=== PATIENT | female | born 1935 | race Caucasian/White ===

== ENCOUNTER 2017-12-28 06:20 | Day surgery (SDC) | payer OTHER ==
[~2017-12-28] VITALS: Ht 160 cm; Wt 75.1 kg
[~2017-12-28 06:20] MED LIST: ADULT ASPIRIN81 MG; Cranberry300 MG; VERA120; VITAMIN B COMP1 EACH
== END 2017-12-28 08:01 | disposition home or self-care (01) ==
LOC: ORSCSDS 06:20
PROVIDERS: Ophthalmology
PROC: 08RJ3JZ Replacement of Right Lens with Synthetic Substitute, Percutaneous Approach (ICD-10-PCS; principal; 2017-12-28 07:30)
DX: H25.11 Age-related nuclear cataract, right eye (principal); H21.81 Floppy iris syndrome; I10 Essential (primary) hypertension; Z86.73 Personal history of transient ischemic attack (TIA), and cerebral infarction without residual deficits; Z79.899 Other long term (current) drug therapy
CPT/HCPCS: J2250; J3010; J3301; V2632

== ENCOUNTER 2018-01-18 08:08 | Day surgery (SDC) | payer OTHER ==
[~2018-01-18] VITALS: Ht 160 cm; Wt 74.5 kg
== END 2018-01-18 10:32 | disposition home or self-care (01) ==
LOC: ORSCSDS 08:08
PROVIDERS: Ophthalmology
PROC: 08RK3JZ Replacement of Left Lens with Synthetic Substitute, Percutaneous Approach (ICD-10-PCS; principal; 2018-01-18 09:30)
DX: H25.12 Age-related nuclear cataract, left eye (principal); I10 Essential (primary) hypertension; Z79.899 Other long term (current) drug therapy
CPT/HCPCS: J2250; J3010; J3301; J7040; V2632

== ENCOUNTER → 2020-01-08 | Outpatient (CLI) | payer MEDICARE ==
[~2020-01-08] MED LIST changes: -ADULT ASPIRIN81 MG; +ASPIR 8181 MG PO; +B Complex-Foli1 EACH PO; -VERA120; +VERA120 PO; -VITAMIN B COMP1 EACH; +Zithromax250 MG PO
== END | disposition home or self-care (01) ==
LOC: PLD 12:24 → LAB SHORT 12:24
DX: L57.0 Actinic keratosis (principal)
CPT/HCPCS: 88305

== ENCOUNTER → 2020-12-23 | Outpatient (CLI) | payer MEDICARE | END | disposition home or self-care (01) | LOC: LAB SHORT 15:59 | DX: L57.0 Actinic keratosis (principal); L81.4 Other melanin hyperpigmentation; L81.9 Disorder of pigmentation, unspecified | CPT/HCPCS: 88305 ==

== ENCOUNTER → 2021-01-12 | Outpatient (CLI) | payer MEDICARE | END | disposition home or self-care (01) | LOC: LAB SHORT 09:00 → LAB 09:00 | DX: L72.0 Epidermal cyst (principal); C44.311 Basal cell carcinoma of skin of nose | CPT/HCPCS: 88305 ==

== ENCOUNTER 2022-01-07 13:43 | Inpatient (IN) | payer MEDICARE ==
[~2022-01-07] VITALS: Ht 170.2 cm; Wt 76.9 kg
[~2022-01-07 13:43] MED LIST changes: +CEFD300 PO
[2022-01-07 14:23] LABS: BASOPHILS ABSOLUTE AUTO 0.05 K/mm3 (0.00-0.23); BASOPHILS PERCENT AUTO 1 % (0-2); EOSINOPHILS ABSOLUTE AUTO 0.04 K/mm3 (0.00-0.68); EOSINOPHILS PERCENT AUTO 1 % (0-6); Hematocrit 40.4 % (33.0-51.0); Hemoglobin 13.9 g/dL (11.5-16.0); IMMATURE GRAN ABSOLUTE AUTO 0.02 K/mm3 (0.00-0.10); IMMATURE GRAN PERCENT AUTO 0 % (0-1); LYMPHOCYTES ABSOLUTE AUTO 1.53 K/mm3 (0.84-5.20); LYMPHOCYTES PERCENT AUTO 24 % (21-46); MONOCYTES ABSOLUTE AUTO 1.16 K/mm3 (0.16-1.47); MONOCYTES PERCENT AUTO 18 % (4-13); Mean Corpuscular HGB 31.7 pg (26.0-34.0); Mean Corpuscular HGB Conc 34.4 g/dL (31.5-36.5); Mean Corpuscular Volume 92 fL (80-100); Mean Platelet Volume 10.7 fL (9.1-12.4); NEUTROPHILS ABSOLUTE AUTO 3.67 K/mm3 (1.96-9.15); NEUTROPHILS PERCENT AUTO 57 % (41-73); Platelet Count 207 K/mm3 (150-400); RDW Coefficient Variation 13.2 % (11.7-14.2); RDW Standard Deviation 45.4 fL (35.1-46.3); Red Blood Cell Count 4.39 M/mm3 (3.80-5.20); White Blood Cell Count 6.47 K/mm3 (4.00-11.30)
[2022-01-07 14:23] LABS: Source, Urine Straight Cath
[2022-01-07 14:36] LABS: Alanine Aminotransfer (ALT/SGP 34 U/L (12-78); Albumin, Blood 2.7 g/dL (3.4-5.0); Albumin/Globulin Ratio 0.7 (0.8-1.8); Alk Phos 45 U/L (50-136); Anion Gap 6 mmol/L (6-16); Aspartate Aminotrans (AST/SGOT 32 U/L (12-37); Bilirubin, Total 0.4 mg/dL (0.1-1.0); Blood Urea Nitrogen 10 mg/dL (8-24); Bun/Creatinine Ratio 13.7 (12.0-20.0); CO2, Blood 27 mmol/L (21-32); Calcium, Blood 8.8 mg/dL (8.5-10.1); Chloride, Blood 103 mmol/L (98-108); Creatinine, Blood 0.73 mg/dL (0.40-1.00); Ethanol (Alcohol), Blood, Med <3 mg/dL; Globulin, Blood 3.9 g/dL (2.2-4.0); Glomerular Filtration Rate 80 (60-); Glucose, Blood 118 mg/dL (70-99); Potassium, Blood 3.2 mmol/L (3.5-5.5); Sodium, Blood 136 mmol/L (136-145); Total Protein, Blood 6.6 g/dL (6.4-8.2)
[2022-01-07 14:42] LABS: Appearance, Urine Hazy (Clear); Bilirubin, Urine Neg (Neg); Blood, Urine Neg (Neg); Color, Urine Yellow (P-Yellow); Glucose Qualitative, Urine Neg (Neg); Ketones, Urine Neg (Neg); Leukocyte Esterase, Urine Neg (Neg); Nitrite, Urine Neg (Neg); Protein, Urine Neg (Neg); Urobilinogen, Urine NORM (Normal)
[2022-01-07 14:57] LABS: Red Blood Cells, Urine 0-2 /hpf (0-2); Squamous Epithelial Cells Few /hpf (Few); White Blood Cells, Urine 0-2 /hpf (0-5)
[2022-01-07 14:58] LABS: Bacteria Few /hpf; Yeast/Fungi Urine Many /hpf
[2022-01-07 15:30] LABS: Free Thyroxine 1.09 ng/dL (0.70-1.60)
[2022-01-07 15:32] LABS: Thyroid Stimulating Hormone 1.66 uIU/mL (0.360-4.800); Triiodothyronine, Free 1.76 pg/mL (2.18-3.98)
--- NOTE | 2022-01-08 05:36 | NUR ---
PT ADMIT TO ROOM 329 FROM ER THIS SHIFT, ALERT, [place], WEAK BUT WEAKER ON RIGHT SIDE. SLOW TO ANSWER, NPO AT THIS TIME FOR ST EVAL. INCONTINENT OF URINE, PURWICK IN PLACE AT THIS TIME. PT IS ON BEDREST.
[2022-01-08 05:40] LABS: Bun/Creatinine Ratio 15.9 (12.0-20.0); Calcium, Blood 9.2 mg/dL (8.5-10.1); Creatinine, Blood 0.76 mg/dL (0.40-1.00); Potassium, Blood 4.2 mmol/L (3.5-5.5)
--- NOTE | 2022-01-08 18:48 | NUR ---
SHIFT SUMMARY PT A&O X 3. VSS. PT PASSED SWALLOW TEST. PT & OT WORKED WITH PT TODAY. SEE THEIR NOTES. FAMILY AT BEDSIDE. MANAGER HAIR IN TO SPEAK WITH PT & FAMILY. PT REQUIRES ASSIST TO EAT. R SIDED WEAKNESS NOTED. PT HAD MOD SIZED INC STOOL TODAY. PLAN IS POSSIBLE DC TO SNF NEXT WEEK.
--- NOTE | 2022-01-09 05:36 | NUR ---
PT IS ALERT, GENERAL WEAKNESS BUT WEAKER TO RIGHT SIDE, INCONTINENT OF BLADDER AND BOWEL. REDNESS TO GLUTEAL CRACK DUE TO BOWEL INCONTINENCE, CALAZIME CREAM APPLIED. TELE MONITOR. 2L O2 VIA N/C.
[2022-01-09] MEDS ORDERED: Inderal40 MG PO (06:30)
--- NOTE | 2022-01-09 10:21 | NUR ---
Subjective: Patient in bed on entry, weepy and emotional, reluctant to work with therapy, denies pain. Objective: Patient performed therapeutic exercises in supine and seated positions including: Ankle pumps,Heel slides, quad sets, SLR's, glute sets, LAQ's, and hip flexion needing no assistance on L LE, ModA needed with all LE exercises due to weakness, Patient able to perform shoulder shrugs, minimal R UE mobility due to weakness needing modA with OH press, R hand inspector balance truing strength 2-/10. Patient performed UE weight shifting for recruitment into R UE along with cues being needed on upright posture as patient wanted to lean to the right side. Assessment: Patient demonstrated improved tolerance with bed mobility and transfers needing min/mod assistance with moving from supine to sitting EOB, Moderate cues needed on motor planning and control, mod/max assistance needed with R LE. ModA x1 needed with STS at FWW, maximal cues and assistance needed with R UE/LE into standing and pushing through L UE/LE with focus on upright posture. Patient performed 2 STS before needing to sit due to increased fatigue. MaxA needed with B LE's back up into bed. Plan: Patient will benefit from continued skilled therapy in a SNF upon discharge for improved strength to maintain function.
--- NOTE | 2022-01-09 11:16 | NUR ---
MS SENA IS ORIENTATED TO SELF, [facility], JANUARY 2022. CONFUSED AND RAMPART, SLURRED ELGIN. SYMPTOMS IMPROVING PER HER GRANDDAUGHTER WHO IS HERE WITH HER. R HAND AND ARM WEAKNESS, R LEG WEAKNESS. ABLE TO DEALER ACCOUNT MANAGER WITH R HAND VERY WEAKLY, ABLE TO MOVE R FOOT UP AND DOWN BUT NOT LIFT R LEG OFF THE BED. ABLE TO DO SHOULDER SHRUGS. WORKED WITH PT AND SPEACH THERAPIST THIS AM, PT REMINDED TO DO PRESCRIBED EXERCISES. C/O JAW PAIN WHEN SHE CHEWS, CHANGED TO SOFT DIET BY SPEACH THERAPIST. C/O SORENESS WITH REDNESS AROUND BUTTOCKS. ENCOURAGED AND ASSISTED TO TURN AND REPOSITION. STRONG PRODUCTIVE COUGH, ON 2L NC. GRANDDAUGHTER SAID PT IS NOT ON O2 AT HOME. NO SOB OBSERVED. BED LOW, CALL LIGHT IN REACH, BED ALARM ON.
--- NOTE | 2022-01-09 15:18 | NUR ---
POOR PO INTAKE, APPROX 300CC TODAY. NOT VOIDED. BLADDER SCAN [id number]. MESSAGE LEFT WITH DR CLEARY. PO FLUIDS ENCOURAGED
--- NOTE | 2022-01-09 19:07 | NUR ---
SHIFT SUMMARY MS SENA IS ALERT, ABLE TO ANSWER ORIENTATION QUESITIONS FOR NAME, THAT SHE'S AT [facility] AND MONTH AND YEAR, BUT SHE IS CONFUSED AND FORGETFUL. HER FAMILY WAS VISITING TODAY, HER GRANDDAUGHTER SAID THAT SHE NOTICES IMPROVEMENT IN SPEACH, STRENGTH AND MENTATION. PT WORKED WITH SPEACH THERAPY AND PT TODAY. SHE HAS A POOR APPETITE AND DRINKS SMALL VOLUMES AT A TIME. SHE HAD NOT VOIDED BY AROUND 3PM. BLADDER SCAN DONE AT 326CC. DR CLEARY WAS NOTIFIED, IVF STARTED LR AT 125CC/HR. PT HAD EPISODE OF URINARY INCONTINENCE AFTER THIS, UNABLE TO MEASURE VOLUME. RIGHT HAND/ARM WEAKNESS AND R LEG WEAKNESS, SLURRED SPEACH AND R FACIAL DROOP PER PRIOR NOTE. BED LOW, CALL LIGHT IN REACH. BED ALARM ON.
--- NOTE | 2022-01-10 16:04 | NUR ---
BLADDER SCAN COMPLETED, 726ML RESIDUAL. NOTIFIED, ORDER TO PLACE SINGER RECEIVED. SINGER PLACED, DRAINING TO GRAVITY, WILL CONTINUE TO MONITOR
--- NOTE | 2022-01-10 17:56 | NUR ---
SHIFT SUMMARY PT ALERT AND ORIENTED, OCCASIONAL CONFUSION NOTED, BUT ABLE TO FOLLOW COMMANDS. RIGHT SIDED WEAKNESS, SLURRED SPEACH AND SMALL DELAY. PENDING ECHO AND CAROTID. SINGER PLACED TODAY D/T RETENTION, DRAINING TO GRAVITY. WILL CONTINUE TO MONITOR.
--- NOTE | 2022-01-11 04:10 | NUR ---
SHIFT SUMMARY: PT A/OX3, OCCASSIONAL INCREASED CONFUSION WHEN WAKING. REORIENTATION PROVIDED. IMPROVED STRENGTH NOTED IN RIGHT ARM, INCREASED RANGE OF MOTION, STRENGHTH AND MOVEMENT. NO COMPLAINTS OF PAIN. SINGER CATHETER REMAINS IN PLACE AND DRAINING WELL. PT CONTINES TO REQUEST LYING SUPINE, DECLINES SLEEPING OR TURNING ON SIDE DUE TO COMFORT. BED ALARM REMAINS ACTIVATED, CALL ZHENG AND BELONGINGS IN REACH, BED IN LOW POSITION.
--- NOTE | 2022-01-11 17:00 | NUR ---
SHIFT SUMMARY PT ALERT AND ORIENTED. TEMPORARY CONFUSION WHEN WAKING UP. SINGER IN PLACE, DRAINING TO GRAVITY. PT AGREES TO GO TO REHAB FACILITY TEMPORARILY WHILE WAITING FOR HH TO BE SET UP. REGAINING STRENGTH TO R EXTREMITIES. NO C/O PAIN. WILL CONTINUE TO MONITOR
--- NOTE | 2022-01-12 05:56 | NUR ---
SHIFT SUMMARY: PATIENT HAD A RESTLESS NIGHT. OFF AND ON SLEEP, APPEARS TO BE FIXATED ON GOING HOME AND CONCERNED WITH DISCHARGING TO POSSIBLE SNIFF. CONTINUED OCCASSIONAL CONFUSION WHEN WAKING AND SOME SHORT TERM MEMORY LOSS- REPEATED QUESTIONS. CONTINUED RIGHT SIDED WEAKNESS COMPARED TO LEFT- YET RIGHT ARM HAS INCREASED MOBILITY. NO COMPLAINTS OF PAIN THROUGOUT THE NIGHT. SINGER REMAINS IN PLACE, DRAINING WELL WITH ADEQUATE URINARY OUTPUT.
[2022-01-12 09:50] LABS: Influenza A, PCR NEGATIVE (NEGATIVE); Influenza B, PCR NEGATIVE (NEGATIVE); Resp Syncytial Virus, PCR NEGATIVE (NEGATIVE)
[2022-01-12 09:52] LABS: SARS-Cov-2 (COVID-19) PCR, MMC POSITIVE (NEGATIVE)
--- NOTE | 2022-01-12 17:48 | NUR ---
SHIFT SUMMARY PT ALERT, FOLLOWS SIMPLE COMMANDS. PT + FOR COVID FOLLOWING SWAB, PLACED ON PRECATIONS. PT REMAINS ASYMPTOMATIC, ROOM AIR, SPO2 >92%. DISCHARGE DELAYED D/T COVID RESULTS, FAMILY NOTIFIED. PT UP OOB TO CHAIR TODAY FOR LUNCH. SINGER REMOVED, PT HAS VOIDED SMALL AMOUNT. SMALL RESIDUALS WHEN SCANNED. WILL CONTINUE TO MONITOR.
--- NOTE | 2022-01-13 05:23 | NUR ---
SHIFT SUMMARY: A/OX3-4, WITH OCCASSIONAL CONFUSION UPON WAKING. CONTINED RIGHT SIDED WEAKNESS THAT HAS HAD SIGNIFICANT IMPROVEMENT OVER THE PAST 3 DAYS. PT HAS NOTICEABLE INCREASED MOBILITY AND STRENGTH ON RIGHT SIDE. PT REPORTS NO COVID SYMPTOMS AT THIS TIME, GENERALLY PT STATES SHE FEELS WELL. PUREWICK IN PLACE, DRAINING WELL. NO COMPLAINTS OF PAIN THROUGHOUT THE NIGHT. BED IN LOW POSITION, BED ALARM ACTIVATED, CALL ZHENG AND BELONGINGS IN REACH.
--- NOTE | 2022-01-13 16:28 | NUR ---
SHIFT SUMMARY- PT VSS. PT A&O X2. PT CONFUSED AT TIMES OVER WHEN TO BE D/C'D. PT FORGETFULL OF COVID DIAGNOSIS THAT KEEPS HER HERE ANOTHER 9 DAYS. RE-ORIENTING PT WITH EACH VISIT REDIRECTS HER CONCERNS. PT COMPLIANT OF CARE GIVEN AND TOOK MEDS DIRECTED PER EMAR. PT RESTING NOW WITH SAIDE RAILS, BED ALARM, AND CALL LIGHT IN REACH.
--- NOTE | 2022-01-14 05:33 | NUR ---
SHIFT SUMMARY PT ALERT AND ORIENTED. ON BEDREST. AFEBRILE. HR 70-80'S. BP STABLE. ON RA SATS OVER 90%. EAGER TO GO HOME, ASKS OFTEN IF/WHEN SHE CAN LEAVE. PUREWICK IN PLACE DRAINING URINE. IN BED SLEEPING WITH CALL ALARM AT SIDE, WILL CONTINUE TO MONITOR UNTIL REPORT GIVEN TO DAYSHIFT RN
--- NOTE | 2022-01-14 17:37 | NUR ---
PATIENT IS QUIET DURING THIS SHIFT WITH RIGHT SIDED WEAKNESS WHICH SEEMS TO BE A LITTLE IMPROVED AT THE END OF THIS SHIFT. TELEMETRY WAS DISCONTINUED THIS AFTERNOON. BUTTOCK IS STARTING TO GET RED SO BARRIER CREAM HAS BEEN APPLIED AND PERWICK STILL IN PLACE. SHE IS EATING SOME OF EACH MEAL AND DENIES NAUSEA. ZOFRAN HAS BEEN CHANGED TO PO, JUST INCASE SHE EVER DOES. THE PATIENTS IV STARTED BLEEDING, AND WAS REMOVED. AN ORDER FOR NO IV ACCESS WAS OBTAINED.
--- NOTE | 2022-01-14 18:11 | NUR ---
PATIENT ATE A VERY SMALL PORTION OF DINNER- MAYBE 5 PERCENT. SHE STATES THAT SHE HAS PAIN IN HER CHEEK BONE. SHE DENIES WANTING SOMETHING FOR PAIN AND STATES THAT SHE IS FULL.
--- NOTE | 2022-01-15 05:12 | NUR ---
SUMMARY: PT A/OX3, SPECIFIES NEEDS WHEN STAFF IN ROOM AND IS PLEASANT AND COOPERATIVE W/CARE. R.SIDE WEAKNESS POST CVA PERSISTS BUT STRENGTH AND MOBILITY OF R.EXT'S IS IMPROVING. NO SWALLOW OR SPEECH DEFICITS OBSERVED. SHE REMAINS ON BED REST W/TURN SCHEDULE MAINTAINED FOR SBD PREVENTION. BUTTOCKS IS PINK BUT IS IMPROVING, BARRIER CREAM APPLIED PRN. PUREWIC CATHETER IS IN PLACE AND PATENT, ATTENDS/LINEN CHANGED FOR SLIGHT LEAKING AND PUREWIC WAS REPLACED. SHE'S DENIES PAIN AND ALL OTHER COMPLAINTS BUT REPORTS CHRONIC NEUROPATHY. PT IS COVID POSITIVE W/DC ORDERS IN PLACE PENDING SNF BED AVAILABILITY. SHE HOPES TO GO HOME SOON. NO ACUTE CHANGES, VSS/AFEBRILE. WCTM AND REPORT TO DAY RN.
--- NOTE | 2022-01-15 16:25 | NUR ---
SHIFT SUMMARY PATIENT IS ALERT AND ORIENTATED. PATIENT IS A 2 PERSON ASSIST. PATIENT HAS HAD A PERWICK IN PLACE DUE TO PATIENTS WEAKNESS. PATIENT WAS SCHEDULED TO BE DISCHARGED HOME DUE TO PT RECOMMENDATION BUT DISCHARGE CANCELLED DUE TO UNSAFE DISCHARGE PLAN. PATIENT HAS HAD NO ACUTE EVENTS THIS SHIFT. VITAL SIGNS REVIEWED. BED IS IN LOCKED AND LOWEST POSITION. CALL LIGHT IN PLACE. WILL MONITOR UNTIL SHIFT CHANGE.
--- NOTE | 2022-01-16 03:39 | NUR ---
PATIENT IS ALERT TIMES 2-3. PLEASANT AND COOPERATIVE WITH CARE. GENERALIZED WEAKNESS RIGHT GREATER THAN LEFT. SPEECH CLEAR, FORGETFUL TO WHY SHE IS STILL IN THE HOSPITAL AND WHY SHE IS UNABLE TO GO HOME "NOW". NO COMPLAINTS OF PAIN OR SOB OVERNIGHT. WRESTLING SCD'S TO REMOVE INTERMITTANTLY. UNDERSTANDS EXPLANATION OF WHY THEY ARE NEEDED, THEN LATER, SHE FORGETS AND WANTS THEM REMOVED.
--- NOTE | 2022-01-16 16:36 | NUR ---
SHIFT SUMMARY PATIENT IS ALERT AND ORIENTED. PATIENT HAD FAMILY VISIT FOR MOST OF DAY, OTHERWISE RESTING COMFORTABLY IN BED. PATIENT HAS HAD NO ACUTE EVENTS THIS SHIFT. PATIENT HAS BEEN PLEASENT AND COOPERATIVE WITH CARE. PATIENT HAS NOT COMPLAINED OF PAIN, SOB, VOMITTING OR NAUSEA THIS SHIFT. PATIENT TAKES MEDS WELL IN APPLESAUCE. VITAL SIGNS REVIEWED. CALL LIGHT IN PLACE. BED IN LOCKED AND LOWERED POSITION. WILL MONITOR UNTIL SHIFT CHANGE.
--- NOTE | 2022-01-17 03:15 | NUR ---
PATIENT IS ALERT AND ORIENTED TO EVENT, PLACE, AND SELF. VERY FORGETFUL OF MORE RECENT EVENTS. PLEASANT AND COOPERATIVE WITH CARE. "JUST ANXIOUS TO GO HOME", AND DOESN'T UNDERSTAND WHY SHE SHOULD HAVE TO GO TO REHAB INSTEAD OF STRAIGHT HOME. WE SPOKE ABOUT THE NEED FOR HER TO REGAIN MORE STRENGTH ON HER RIGHT SIDE SO THAT SHE WOULD BE SAFE AT HOME WHEN THERE ARE NO AGRICULTURAL EXTENSION EDUCATOR CAREGIVERS. i EXPLAINED THAT HOME HEALTH IS NOT 24/7, SO GETTING STRONGER IS THE BEST WAS TO MEET HER GOALS. SACRAL AREA STILL RED. BARRIER CREAN APPLIED. PUREWICK KEEPING DANIELLE AREA DRY AND PRODUCING CLEAR BRAXTON/YELLOW URINE. PATIENT IS STILL BAFFLED ABOUT HOW SHE CONTRACTED COVID. SHE REMAINS ASYMPTOMATIC.
--- NOTE | 2022-01-17 17:33 | NUR ---
SHIFT SUMMARY PATIENT IS ALERT AND ORIENTED 2-3X. PATIENT HAS HAD OCCASIONAL CONFUSION. PATIENT HAS HAD NO ACUTE EVENTS THIS SHIFT. VITAL SIGNS REVIEWED. PATIENT HAS BEEN INCONTINENT THIS SHIFT. PATIENT HAS SLIGHTLY MORE DROOP ON ONE SIDE. BED IN LOCKED AND LOWEST POSITION. CALL LIGHT IN PLACE. WILL MONITOR UNTIL SHIFT CHANGE.
--- NOTE | 2022-01-18 05:22 | NUR ---
NO NOTABLE CHANGES DURING THE SHIFT, VSS. PT SLEPT ALL NIGHT. PURWIC REMOVED DUE TO SKIN IRRITATION.
--- NOTE | 2022-01-18 16:54 | NUR ---
NO ACUTE CHANGES AT THIS TIME. PT AOX2 WITH CONFUSION. PT L SIDED WEAKNESS CONTINUES, BUT PT WAS ABLE TO WORK WITH PHYSICAL THERAPY. PT WAS UP IN CHAIR FOR A BIT IN THE AM AND ONLY TOLERATED FOR A SHORT TIME. PT HAD FAMILY IN TO VISIT. CALL LIGHT IS WITHIN REACH AND WILL CONTINUE TO MONITORL
--- NOTE | 2022-01-19 04:51 | NUR ---
PT C/O NOT BEING CHANGED AT START OF SHIFT AND BURNING IN HER DANIELLE AREA. PT CHANGED AND PLACED ON SIDE WITH BOTTOM EXPOSED TO RELIEVE SKIN. PT AGGITATED ABOUT BEING IN THE HOSPITAL STILL AND WANTS TO GO HOME. PT IS ABLE TO TURN HERSELF IN BED BUT CONTINUES TO BE INCONTINENT OF URINE.
--- NOTE | 2022-01-20 05:23 | NUR ---
NO ACUTE EVENTS, PT CONTINUES TO AWAIT PLACEMENT.
[2022-01-20] MEDS ORDERED: ATOR80 PO (18:41)
[2022-01-20] MEDS ORDERED: BISA10S PR (18:41)
[2022-01-20] MEDS ORDERED: DOCU100 PO (18:41)
[2022-01-20] MEDS ORDERED: MIRALAX17 GM PO (18:42)
[2022-01-20] MEDS ORDERED: ONDA4 PO (18:42)
[2022-01-20] MEDS ORDERED: SENN187 PO (18:43)
[2022-01-20] MEDS ORDERED: VERAPAMIL ER120 M1 PO (18:44)
[2022-01-20] MEDS ORDERED: Vitamin B Comple1 EA PO (18:44)
--- NOTE | 2022-01-20 19:40 | NUR ---
PT DISCHARGED TO [facility] AT 1740 VIA WHEELCHAIR TRANSPORT, 2 SBA TO CHAIR. REPORT CALLED TO MARISOL AT 1400 INITIALLY THAN TX STALLED BECAUSE NO BM SINCE 01/12/AFTER MULT LAX AND DIG ASSIST PT HAD A LG BM. SENT WITH BELONGINGS. CREAM INCLUDING NYSTATIN TO RED RASH.
[2022-03-26] MEDS ORDERED: POTA20PAC PO (18:46)
[2022-03-26] MEDS ORDERED: NITR100CA PO (18:46)
[2022-03-26] MEDS ORDERED: ONDA4 PO (18:46)
== END 2022-01-20 17:41 | DRG 64 ==
LOC: ER 13:43 → MEDS 19:56 → ENPENDDIS 01-20 15:55 → MEDS 01-20 17:41
PROVIDERS: Emergency Medicine; ADMIT Internal Medicine
PROC: 8E0ZXY6 Isolation (ICD-10-PCS; principal; 2022-01-07)
DX: I63.9 Cerebral infarction, unspecified (principal); U07.1 COVID-19; G81.91 Hemiplegia, unspecified affecting right dominant side; I10 Essential (primary) hypertension; E87.6 Hypokalemia; R47.81 Slurred speech; Z88.2 Allergy status to sulfonamides; Z88.8 Allergy status to other drugs, medicaments and biological substances; M19.90 Unspecified osteoarthritis, unspecified site; Z86.73 Personal history of transient ischemic attack (TIA), and cerebral infarction without residual deficits; Z90.49 Acquired absence of other specified parts of digestive tract; Z90.710 Acquired absence of both cervix and uterus; Z98.890 Other specified postprocedural states; Z90.721 Acquired absence of ovaries, unilateral; Z87.891 Personal history of nicotine dependence; Z66 Do not resuscitate; Z79.899 Other long term (current) drug therapy; Z79.82 Long term (current) use of aspirin
CPT/HCPCS: 0241U; 36415; 51701; 70450; 70551; 71045; 80048; 80053; 81001; 82947; 84439; 84443; 84481; 85025; 92526; 92610; 93005; 93010; 93306; 93880; 94760; 96365-59; 97110; 97112; 97116; 97162; 97165; 97530; 97535; 99285-25; A9270; G0480; J3480; J7120; J7512

== ENCOUNTER 2022-03-07 11:38 | Emergency (ER) | payer MEDICARE ==
[~2022-03-07] VITALS: Ht 162.6 cm; Wt 66.7 kg
[~2022-03-07 11:38] MED LIST changes: +ATOR80 PO; +BISA10S PR; +DOCU100 PO; +Inderal40 MG PO; +MIRALAX17 GM PO; +ONDA4 PO; +SENN187 PO; +VERAPAMIL ER120 M1 PO; +Vitamin B Comple1 EA PO
[2022-03-07 12:47] LABS: BASOPHILS ABSOLUTE AUTO 0.04 K/mm3 (0.00-0.23); BASOPHILS PERCENT AUTO 1 % (0-2); EOSINOPHILS ABSOLUTE AUTO 0.12 K/mm3 (0.00-0.68); EOSINOPHILS PERCENT AUTO 2 % (0-6); Hematocrit 42.9 % (33.0-51.0); Hemoglobin 14.3 g/dL (11.5-16.0); IMMATURE GRAN ABSOLUTE AUTO 0.01 K/mm3 (0.00-0.10); IMMATURE GRAN PERCENT AUTO 0 % (0-1); LYMPHOCYTES ABSOLUTE AUTO 1.86 K/mm3 (0.84-5.20); LYMPHOCYTES PERCENT AUTO 29 % (21-46); MONOCYTES ABSOLUTE AUTO 0.92 K/mm3 (0.16-1.47); MONOCYTES PERCENT AUTO 15 % (4-13); Mean Corpuscular HGB 30.7 pg (26.0-34.0); Mean Corpuscular HGB Conc 33.3 g/dL (31.5-36.5); Mean Corpuscular Volume 92 fL (80-100); Mean Platelet Volume 10.4 fL (9.1-12.4); NEUTROPHILS ABSOLUTE AUTO 3.38 K/mm3 (1.96-9.15); NEUTROPHILS PERCENT AUTO 53 % (41-73); Platelet Count 289 K/mm3 (150-400); RDW Coefficient Variation 14.4 % (11.7-14.2); Red Blood Cell Count 4.66 M/mm3 (3.80-5.20); White Blood Cell Count 6.33 K/mm3 (4.00-11.30)
[2022-03-07 13:14] LABS: Albumin, Blood 2.9 g/dL (3.4-5.0); Albumin/Globulin Ratio 0.7 (0.8-1.8); Bilirubin, Total 0.7 mg/dL (0.1-1.0); Bun/Creatinine Ratio 16.2 (12.0-20.0); Calcium, Blood 9.2 mg/dL (8.5-10.1); Creatinine, Blood 0.55 mg/dL (0.40-1.00); Potassium, Blood 3.8 mmol/L (3.5-5.5); Total Protein, Blood 6.9 g/dL (6.4-8.2)
[2022-03-07] MEDS ORDERED: LOPE2C (13:27)
[2022-03-07] MEDS ORDERED: FURO20 PO (13:27)
[2022-03-07 14:37] LABS: Source, Urine Clean Catch
[2022-03-07 15:02] LABS: Appearance, Urine Hazy (Clear); Bilirubin, Urine Neg (Neg); Blood, Urine Neg (Neg); Color, Urine Yellow (P-Yellow); Glucose Qualitative, Urine Neg (Neg); Ketones, Urine Neg (Neg); Leukocyte Esterase, Urine 1+ (Neg); Nitrite, Urine Neg (Neg); Protein, Urine Neg (Neg); Urobilinogen, Urine NORM (Normal)
[2022-03-07 15:40] LABS: Bacteria Many /hpf; Red Blood Cells, Urine 0-2 /hpf (0-2); Squamous Epithelial Cells Mod /hpf (Few)
== END 2022-03-07 17:17 | disposition home or self-care (01) ==
LOC: ER 11:38
PROVIDERS: Emergency Medicine
DX: E86.0 Dehydration (principal); F03.90 Unspecified dementia, unspecified severity, without behavioral disturbance, psychotic disturbance, mood disturbance, and anxiety; I10 Essential (primary) hypertension; Z86.73 Personal history of transient ischemic attack (TIA), and cerebral infarction without residual deficits; Z79.899 Other long term (current) drug therapy; Z87.891 Personal history of nicotine dependence; Z88.6 Allergy status to analgesic agent; Z88.2 Allergy status to sulfonamides; Z88.8 Allergy status to other drugs, medicaments and biological substances
CPT/HCPCS: 70450; 71045; 80053; 81001; 85025; P9612

== ENCOUNTER 2022-09-28 16:32 | Emergency (ER) | payer MEDICARE ==
[~2022-09-28] VITALS: Ht 165.1 cm; Wt 73.4 kg
[~2022-09-28 16:32] MED LIST changes: +ATOR80; +Aspir 8181 MG PO; +FURO20 PO; +LOPE2C; +NITR100CA PO; +POTA10T PO; +POTA20PAC PO; +VITAMIN D310 MC4 PO
[2022-09-28] MEDS ORDERED: AMOCLA875 PO (17:51)
== END 2022-09-28 18:43 | disposition home or self-care (01) ==
LOC: ER 16:32
DX: J18.9 Pneumonia, unspecified organism (principal); I10 Essential (primary) hypertension; F03.90 Unspecified dementia, unspecified severity, without behavioral disturbance, psychotic disturbance, mood disturbance, and anxiety; Z88.2 Allergy status to sulfonamides; Z88.6 Allergy status to analgesic agent; Z88.8 Allergy status to other drugs, medicaments and biological substances; Z79.82 Long term (current) use of aspirin; Z79.899 Other long term (current) drug therapy
CPT/HCPCS: 71045; 99284-25

== ENCOUNTER → 2022-10-13 | Outpatient (CLI) | payer MEDICARE ==
[~2022-10-13] MED LIST changes: +AMOCLA875 PO
[2022-10-14 11:16] LABS: Source, Urine Voided
[2022-10-14 11:40] LABS: Appearance, Urine Clear (Clear); Bilirubin, Urine Neg (Neg); Blood, Urine 1+ (Neg); Color, Urine Yellow (P-Yellow); Glucose Qualitative, Urine Neg (Neg); Ketones, Urine Neg (Neg); Leukocyte Esterase, Urine 2+ (Neg); Nitrite, Urine Pos (Neg); Protein, Urine 2+ (Neg); Specific Gravity, Urine 1.015 (1.003-1.022); Urobilinogen, Urine 1+ (Normal)
[2022-10-14 12:09] LABS: Bacteria Many /hpf; Mucus Mod (0-Heavy); Squamous Epithelial Cells Mod /hpf (Few)
== END | disposition home or self-care (01) ==
LOC: LAB SHORT 11:15
PROVIDERS: Nurse Practitioner Family
DX: N39.0 Urinary tract infection, site not specified (principal)
CPT/HCPCS: 81001; 87077; 87086; 87186

== ENCOUNTER 2022-11-02 17:35 | Inpatient (IN) | payer OTHER, MEDICARE ==
[~2022-11-02] VITALS: Ht 162.6 cm; Wt 68.6 kg
[2022-11-02] MEDS ORDERED: ESCI10 PO (17:50)
[2022-11-02] MEDS ORDERED: LIPITOR80 MG PO (17:51)
[2022-11-02 18:35] LABS: BASOPHILS ABSOLUTE AUTO 0.06 K/mm3 (0.00-0.23); BASOPHILS PERCENT AUTO 1 % (0-2); EOSINOPHILS ABSOLUTE AUTO 0.12 K/mm3 (0.00-0.68); EOSINOPHILS PERCENT AUTO 1 % (0-6); Hemoglobin 13.6 g/dL (11.5-16.0); IMMATURE GRAN ABSOLUTE AUTO 0.07 K/mm3 (0.00-0.10); IMMATURE GRAN PERCENT AUTO 1 % (0-1); LYMPHOCYTES ABSOLUTE AUTO 2.78 K/mm3 (0.84-5.20); LYMPHOCYTES PERCENT AUTO 32 % (21-46); MONOCYTES ABSOLUTE AUTO 0.93 K/mm3 (0.16-1.47); MONOCYTES PERCENT AUTO 11 % (4-13); Mean Corpuscular Volume 91 fL (80-100); Mean Platelet Volume 11.5 fL (9.1-12.4); NEUTROPHILS ABSOLUTE AUTO 4.66 K/mm3 (1.96-9.15); NEUTROPHILS PERCENT AUTO 54 % (41-73); Platelet Count 201 K/mm3 (150-400); RDW Coefficient Variation 14.1 % (11.7-14.2); RDW Standard Deviation 47.1 fL (35.1-46.3); Red Blood Cell Count 4.39 M/mm3 (3.80-5.20); White Blood Cell Count 8.62 K/mm3 (4.00-11.30)
[2022-11-02 18:45] LABS: Bun/Creatinine Ratio 15.5 (12.0-20.0); Creatinine, Blood 0.65 mg/dL (0.40-1.00); Potassium, Blood 3.3 mmol/L (3.5-5.5)
[2022-11-02 19:20] LABS: Source, Urine Foley catheter
[2022-11-02 19:23] LABS: Appearance, Urine Clear (Clear); Bilirubin, Urine Neg (Neg); Blood, Urine Neg (Neg); Color, Urine Yellow (P-Yellow); Glucose Qualitative, Urine Neg (Neg); Ketones, Urine Neg (Neg); Leukocyte Esterase, Urine Neg (Neg); Nitrite, Urine Neg (Neg); Protein, Urine Neg (Neg); Specific Gravity, Urine 1.005 (1.003-1.022); Urobilinogen, Urine 1+ (Normal)
[2022-11-02 22:13] VITALS: BP 210/89
--- NOTE | 2022-11-02 22:58 | NUR ---
ARRIVAL TO THE UNIT: PT ARRIVED AT APPROXIMATELY 2155. THE PT WAS TRANSFERED TO THE BED VIA SLIDER SHEET. SINGER IN PLACE AT TIME OF ARRIVAL. PT ON 2L 02 VIA NC. VITAL SIGNS TAKEN. PT ORIENTED TO ROOM. PT APPEARS TO BE IN NO DISTRESS AT THIS TIME. DENYING SOB OR CHEST PAIN/PRESSURE. PT APPEARS SLIGHTLY FORGETFUL/CONFUSED. REORIENTED. PT IN BED WITH CALL LIGHT IN REACH.
--- NOTE | 2022-11-02 23:18 | NUR ---
HEALTH HX: PT UNABLE TO GIVE FULL HEALTH HX AT THIS TIME DUE TO CONFUSION. ER REPORT AND PAST HP REFERENCED FOR PATIENT INFORMATION.
[2022-11-03] VITALS (7 sets, daily range): BP systolic 154–183; BP diastolic 64–76
--- NOTE | 2022-11-03 00:51 | NUR ---
PHYSICIAN CONTACT: DR. BERG CALLED DUE TO PT BLOOD PRESSURE READINGS. ORDER FOR HYDRALAZINE 10 MG IV Q6 FOR SYSTOLIC >160 OBTAINED.
--- NOTE | 2022-11-03 04:48 | NUR ---
SHIFT SUMMARY: PT ADMITTED TO THE FLOOR FOR A RIGHT HIP FX. PT HAS A HX OF DEMENTIA, PER ER REPORT, AND WAS A POOR HISTORIAN FOR ASSESSMENTS AND ADMISSION INFORMATION. MEDICATIONS WERE UNABLE TO BE VERIFIED WITH PT. PT IS CONFUSED AT TIMES AND FORGETFUL. PT WAS REORIENTED EASILY. VERY COOPERATIVE AND PLEASANT. PAIN WELL MANAGED WITH PO AND IV PAIN MEDICATION, PER EMAR. HAD EPISODES OF HYPTERTENSION DURING THE SHIFT THAT RESPONDED WELL TO PO MEDICATION AND IV HYDRALAZINE. PT DENIED SOB OR CHEST PAIN T/O THE SHIFT. PT RESTING WITH CALL LIGHT IN REACH. WILL GIVE REPORT TO DAY TIME RN.
[2022-11-03 04:56] LABS: Bun/Creatinine Ratio 14.9 (12.0-20.0); Calcium, Blood 8.8 mg/dL (8.5-10.1); Creatinine, Blood 0.6 mg/dL (0.40-1.00)
--- NOTE | 2022-11-03 13:22 | NUR ---
CALL FROM OR STAFF. PT TO HAVE SURGERY TOMORROW 11/04/22. PT ABLE TO HAVE REGULAR DIET, NPO MIDNIGHT.
[2022-11-04] VITALS (28 sets, daily range): BP systolic 99–169; BP diastolic 47–74
[2022-11-04 04:29] LABS: BASOPHILS ABSOLUTE AUTO 0.04 K/mm3 (0.00-0.23); BASOPHILS PERCENT AUTO 0 % (0-2); EOSINOPHILS ABSOLUTE AUTO 0.19 K/mm3 (0.00-0.68); EOSINOPHILS PERCENT AUTO 2 % (0-6); Hematocrit 38.1 % (33.0-51.0); Hemoglobin 12.8 g/dL (11.5-16.0); IMMATURE GRAN ABSOLUTE AUTO 0.03 K/mm3 (0.00-0.10); IMMATURE GRAN PERCENT AUTO 0 % (0-1); LYMPHOCYTES ABSOLUTE AUTO 1.75 K/mm3 (0.84-5.20); LYMPHOCYTES PERCENT AUTO 15 % (21-46); MONOCYTES ABSOLUTE AUTO 1.15 K/mm3 (0.16-1.47); MONOCYTES PERCENT AUTO 10 % (4-13); Mean Corpuscular HGB 30.3 pg (26.0-34.0); Mean Corpuscular HGB Conc 33.6 g/dL (31.5-36.5); Mean Corpuscular Volume 90 fL (80-100); Mean Platelet Volume 11.4 fL (9.1-12.4); NEUTROPHILS ABSOLUTE AUTO 8.58 K/mm3 (1.96-9.15); NEUTROPHILS PERCENT AUTO 73 % (41-73); Platelet Count 169 K/mm3 (150-400); RDW Coefficient Variation 14.5 % (11.7-14.2); Red Blood Cell Count 4.22 M/mm3 (3.80-5.20); White Blood Cell Count 11.74 K/mm3 (4.00-11.30)
[2022-11-04 04:47] LABS: Bun/Creatinine Ratio 16.7 (12.0-20.0); Calcium, Blood 8.6 mg/dL (8.5-10.1); Creatinine, Blood 0.72 mg/dL (0.40-1.00); Potassium, Blood 3.3 mmol/L (3.5-5.5)
--- NOTE | 2022-11-04 05:12 | NUR ---
SHIFT SUMMARY VSS. PT SLEPT ON AND OFF T/O THE NIGHT. MEDICATED FOR PAIN WTIH ULTRAM AND TYLENOL. MINIMAL PO INTAKE T/O THE NIGHT, DR DIGGS OKAYED PT TO HAVE ICE CHIPS FOR COMFORT AFTER 0000 PER THE PREVIOUS SHIFT NURSE. SINGER IN PLACE, DRAINING TO GRAVITY. LOW URINE OUTPUT NOTED, IV FLUIDS INFUSING. PT REMAINED CONFUSED BUT PLEASENT AND COOPERATIVE T/O THE NIGHT. NO ACUTE EVENTS NOTED. PLAN FOR PT TO HAVE SURGERY THIS AFTERNOON. THE PATIENT IS CURRENTLY SLEEPING, IN NO DISTRESS, CALL LIGHT IN REACH, BED ALARM ON FOR SAFETY
--- NOTE | 2022-11-04 13:09 | NUR ---
PT BELONGINGS. THREE RINGS AND A WATCH REMOVED FROM PT'S PERSON PLACED IN A CUP AND HANDED TO FAMILY MEMBER GWEN .
--- NOTE | 2022-11-04 13:46 | NUR ---
THE PATIENT WAS BROUGHT TO DAY SURGERY FOR HER PROCEDURE.
--- NOTE | 2022-11-04 13:48 | NUR ---
1320 TO DAY SURGERY VIA BED. FAMILY AT BEDSIDE
--- NOTE | 2022-11-04 15:36 | NUR ---
11/04/22 1536 VEL SHORT PT RECEIVED ANCEF 2G VIA IVPB AT 1440, ADMINISTERED BY ANESTHESIA.
--- NOTE | 2022-11-04 17:49 | NUR ---
PT RETURNED TO THE FLOOR FROM PACU TO ROOM 224. DRESSING TO ANTERIOR RIGHT HIP DRY AND INTACT. NO DRAINAGE AT THIS TIME. PT IS SLEEPY, CALM, AND RESPONDS TO VERBAL STIMULI. PT ABLE TO MOVE BILATERAL TOES, PEDAL PULSES STRONG, AND CAP REFILL LESS THAN 3 SECONDS. CALL LIGHT WITHIN REACH.
[2022-11-05 04:39] VITALS: BP 161/69
--- NOTE | 2022-11-05 05:13 | NUR ---
SHIFT SUMMARY POD1 R ANDRE HIP, DRESSING IS C/D/I. SENSATION AND CIRCULATION REMAINS INTACT IN RLE. VSS, PT NOTED TO HAVE SOME HTN THIS AM, MEDICATED WITH PRN'S. WEANED FROM 4L OF O2 TO 1L VIA NC. PT SLEPT T/O THE NIGHT, DID NOT REQUIRE PAIN MEDICATION, CRYO REMAINS IN PLACE. REMAINS A/OX1, FREQUENTLY ASKING REPEATE QUESTIONS. PT TOLLERATING MINIMAL PO INTAKE. NO N/V NOTED. UNABLE TO ASSESS FOR FLATTUS. SINGER REMAINS IN PLACE, DRAINING BRAXTON URINE. NO ACUTE EVENTS T/O THE NIGHT. PLAN FOR PT TO WORK WITH PT/OT AND D/C BACK TO [facility] WHEN CLEARED. THE PATIENT IS CURRENTLY RESTING, IN NO DISTRESS, CALL LIGHT IN REACH, BED ALARM ON FOR SAFETY
[2022-11-05 06:05] VITALS: BP 124/65
[2022-11-05 07:09] VITALS: BP 136/60
[2022-11-05 09:13] LABS: BASOPHILS ABSOLUTE AUTO 0.03 K/mm3 (0.00-0.23); BASOPHILS PERCENT AUTO 0 % (0-2); EOSINOPHILS ABSOLUTE AUTO 0.01 K/mm3 (0.00-0.68); EOSINOPHILS PERCENT AUTO 0 % (0-6); Hematocrit 37.9 % (33.0-51.0); Hemoglobin 12.4 g/dL (11.5-16.0); IMMATURE GRAN ABSOLUTE AUTO 0.04 K/mm3 (0.00-0.10); IMMATURE GRAN PERCENT AUTO 0 % (0-1); LYMPHOCYTES ABSOLUTE AUTO 1.06 K/mm3 (0.84-5.20); LYMPHOCYTES PERCENT AUTO 7 % (21-46); MONOCYTES ABSOLUTE AUTO 0.93 K/mm3 (0.16-1.47); MONOCYTES PERCENT AUTO 6 % (4-13); Mean Corpuscular HGB 30.3 pg (26.0-34.0); Mean Corpuscular HGB Conc 32.7 g/dL (31.5-36.5); Mean Corpuscular Volume 93 fL (80-100); NEUTROPHILS ABSOLUTE AUTO 12.73 K/mm3 (1.96-9.15); NEUTROPHILS PERCENT AUTO 86 % (41-73); Platelet Count 160 K/mm3 (150-400); RDW Coefficient Variation 14.4 % (11.7-14.2); Red Blood Cell Count 4.09 M/mm3 (3.80-5.20)
[2022-11-05 09:34] LABS: Bun/Creatinine Ratio 26.8 (12.0-20.0); Calcium, Blood 8.9 mg/dL (8.5-10.1); Creatinine, Blood 0.63 mg/dL (0.40-1.00); Potassium, Blood 4.2 mmol/L (3.5-5.5)
[2022-11-05 15:15] VITALS: BP 117/61
[2022-11-05 17:16] VITALS: BP 134/72
--- NOTE | 2022-11-05 18:47 | NUR ---
SHIFT SUMMARY POD 1 R ANDRE HIP PT REMAINS VERY CONFUSED BUT FOLLOWS DIRECTIONS. 2 MAX ASSIST WITH GAIT BELT AND FWW. DRESSING REMAINS CDI, POLAR IRINEO IN PLACE. SINGER REMOVED. PT EXCITED. TOLERATING PO WELL. PLAN IS TO CONTINUE WORKING WITH PT/OT.
[2022-11-05 20:11] VITALS: BP 153/67
--- NOTE | 2022-11-06 04:14 | NUR ---
SHIFT SUMMARY PT POD 1 RIGHT ANDRE HIP, PT HAS RESTED T/O THE NIGHT, MEDICATED X1 FOR PAIN. POLAR PACK IN PLACE. SINGER REMOVED RUGHT BEFORE SHIFT CHANGE, PT HAS NOT YET VOIDED. BLADDER SCAN ONLY REVEALED 164 MLS IN BLADDER. PT A/O TO SELF, ANSWERS MOST QUESTIONS APPROPRIATELY BUT IS VERY FORGETFUL ASKS AND THE SAME QUESTIONS REPEATEDLY. SHE IS NOT SURE OF WHERE SHE IS OR WHY SHE IS IN THE HOSPITAL. PT REORIENTED PRN. NO ACUTE CHANGES OVERNIGHT. BED IN LOWEST POSTION, CALL LIGHT WITHIN REACH.
[2022-11-06 04:40] VITALS: BP 161/64
[2022-11-06 07:35] VITALS: BP 152/57
[2022-11-06 09:19] LABS: BASOPHILS ABSOLUTE AUTO 0.03 K/mm3 (0.00-0.23); BASOPHILS PERCENT AUTO 0 % (0-2); EOSINOPHILS ABSOLUTE AUTO 0.38 K/mm3 (0.00-0.68); EOSINOPHILS PERCENT AUTO 3 % (0-6); Hematocrit 34.1 % (33.0-51.0); Hemoglobin 11.5 g/dL (11.5-16.0); IMMATURE GRAN ABSOLUTE AUTO 0.04 K/mm3 (0.00-0.10); IMMATURE GRAN PERCENT AUTO 0 % (0-1); LYMPHOCYTES ABSOLUTE AUTO 1.31 K/mm3 (0.84-5.20); LYMPHOCYTES PERCENT AUTO 11 % (21-46); MONOCYTES PERCENT AUTO 7 % (4-13); Mean Corpuscular HGB 30.9 pg (26.0-34.0); Mean Corpuscular HGB Conc 33.7 g/dL (31.5-36.5); Mean Corpuscular Volume 92 fL (80-100); NEUTROPHILS ABSOLUTE AUTO 8.89 K/mm3 (1.96-9.15); NEUTROPHILS PERCENT AUTO 78 % (41-73); RDW Coefficient Variation 14.4 % (11.7-14.2); RDW Standard Deviation 48.1 fL (35.1-46.3); Red Blood Cell Count 3.72 M/mm3 (3.80-5.20); White Blood Cell Count 11.45 K/mm3 (4.00-11.30)
[2022-11-06 09:41] LABS: Mean Platelet Volume 11.6 fL (9.1-12.4); Platelet Count 144 K/mm3 (150-400)
--- NOTE | 2022-11-06 16:08 | NUR ---
SHIFT SUMMARY PT A&OX2, PLEASANT & COOPERATIVE WITH CARE, ALTON PO, VOIDING/BSC, PAIN MANAGED. POD2 R HEMIHIP, AQUACEL CDI, POLAR IRINEO ON, WBAT; AMB 1 PP MOD/MAX W/FWW & GB; UP TO CHAIR FOR A.M./LUNCH. WILL REPORT TO ONCOMING NOC ZE.
[2022-11-06 21:21] VITALS: BP 159/73
[2022-11-07 06:06] VITALS: BP 158/68
--- NOTE | 2022-11-07 06:23 | NUR ---
SHIFT SUMMARY PT A&OX2, PLEASANT AND COOPERATIVE WITH CARE, BED ALARM ON. MEDICATED ONCE WITH TYLENOL. TOLERATING PO INTAKE. VOIDING WITH BSC, ATTENDS IN PLACE BACKUP. 2 PERSON MOD ASSIST WITH FWW/GB. WILFREDEL TO R HIP C/D/I. CALL LIGHT WITHIN REACH.
[2022-11-07 07:03] VITALS: BP 164/71
--- NOTE | 2022-11-07 09:14 | NUR ---
DR. GUSMAN ROUNDED SHE WAS NOTIFIED OF URINARY RETENTION OF >300 AND <400ML DURING THE NIGHT. PLAN TO OFFER TOILETING T/O THE DAY AND MONITOR BLADDER VOLUME.
[2022-11-07 17:53] VITALS: BP 155/98
--- NOTE | 2022-11-07 19:51 | NUR ---
SHIFT SUMMARY PT IS POD#3 FROM R ANDRE HIP. PAIN MANAGED WITH TYLENOL. PT HAS BEEN CONFUSED T/O THE DAY, SHE IS ORIENTED ONLY TO HERSELF. PT WAS ABLE TO GET OOB WITH 2 PERSON MINIMAL ASSIST AND SIT UP TO THE CHAIR FOR DINNER. PT HAS CONTINUED TO HAVE SOME URINARY RETENTION, <400, DR. GUSMAN NOTIFIED. OFFERING TOILETING ALTHOUGH PT IS INCONTINENT PRIOR TO GETTING TO THE BSC. PT SAT TO THE BSC PRIOR TO DINNER. PT IS ABLE TO EAT INDEPENDENTLY. FAMILY/FRIENDS HAVE BEEN AT THE BEDSIDE FOR COMFORT AND SUPPORT.
[2022-11-07 21:08] VITALS: BP 161/66
[2022-11-08 03:38] VITALS: BP 167/72
--- NOTE | 2022-11-08 06:41 | NUR ---
SHIFT SUMMARY PT A&OX2, PLEASANTLY CONFUSED AND COOPERATIVE WITH CARE. NO ACUTE CHANGES. MEDICATED FOR PAIN ONCE. TOLERATING PO INTAKE. 2 MOD ASSIST TO BSC/CHAIR. PT VOIDED ONCE IN THE BSC, AND 1 INCONT VOID IN ATTENDS. AQUACEL TO R HIP C/D/I. 1L O2. CALL LIGHT WITHIN REACH.
[2022-11-08 07:19] VITALS: BP 184/69
[2022-11-08 14:32] VITALS: BP 151/68
[2022-11-08] MEDS ORDERED: Acetaminophen325 M1 PO (15:26)
--- NOTE | 2022-11-08 16:19 | NUR ---
DISCHARGE POD4 R ANDRE HIP. AQUACEL TO RIGHT HIP, C/D/I. AMBULATING WELL WITH 1P MINIMAL ASSIST W/ FWW & GB. EATING, DRINKING, & VOIDING WELL. DISCHARGING BACK HOME TO THE [facility]. STAFF MEMBER FROM THE [facility] CAME AND ASSESSED PATIENT AND DEEMED APPROPRIATE TO RETURN THERE. DISCISSED DISCHARGE INSTRUCTIONS W/ PATIENT, ESCORTED OUT VIA W/C.
== END 2022-11-08 16:23 | disposition home health service (06) | DRG 522 ==
LOC: ER 17:35 → SURS 21:10
PROVIDERS: Emergency Medicine; Family Medicine; Internal Medicine; Nurse Practitioner Acute Care; Orthopaedic Surgery; ADMIT Internal Medicine
PROC: 0SRR0J9 Replacement of Right Hip Joint, Femoral Surface with Synthetic Substitute, Cemented, Open Approach (ICD-10-PCS; principal; 2022-11-04 14:30)
DX: S72.001A Fracture of unspecified part of neck of right femur, initial encounter for closed fracture (principal); M19.90 Unspecified osteoarthritis, unspecified site; M85.80 Other specified disorders of bone density and structure, unspecified site; I10 Essential (primary) hypertension; E78.5 Hyperlipidemia, unspecified; E87.6 Hypokalemia; D69.6 Thrombocytopenia, unspecified; F03.90 Unspecified dementia, unspecified severity, without behavioral disturbance, psychotic disturbance, mood disturbance, and anxiety; D72.828 Other elevated white blood cell count; Z86.73 Personal history of transient ischemic attack (TIA), and cerebral infarction without residual deficits; Z90.49 Acquired absence of other specified parts of digestive tract; Z98.49 Cataract extraction status, unspecified eye; Z90.710 Acquired absence of both cervix and uterus; Z98.890 Other specified postprocedural states; Z88.2 Allergy status to sulfonamides; Z88.8 Allergy status to other drugs, medicaments and biological substances; Z79.82 Long term (current) use of aspirin; Z79.899 Other long term (current) drug therapy; W01.198A Fall on same level from slipping, tripping and stumbling with subsequent striking against other object, initial encounter
CPT/HCPCS: 36415; 51702; 73502; 80048; 81003; 85025; 93005; 93010; 94760; 96374-59; 97110; 97162; 97530; 99285-25; A9270; C1713; C1776; J0171; J0360; J0690; J0735; J1100; J1650; J1885; J2405; J2704; J2795; J3010; J7030; J7120

== ENCOUNTER 2023-01-08 14:46 | Emergency (ER) | payer MEDICARE ==
[~2023-01-08] VITALS: Ht 165.1 cm; Wt 83.1 kg
[~2023-01-08 14:46] MED LIST changes: +Acetaminophen325 M1 PO; +ESCI10 PO; +LIPITOR80 MG PO
[2023-01-08] MEDS ORDERED: BELSOMRA5 MG PO (15:01)
[2023-01-08] MEDS ORDERED: BISA10S PR (15:02)
[2023-01-08] MEDS ORDERED: ALUMINUM H320 MG/5 M PO (15:03)
[2023-01-08] MEDS ORDERED: CICLODAN6.6 ML TOP (15:04)
[2023-01-08] MEDS ORDERED: HYOS.125 PO (15:05)
[2023-01-08] MEDS ORDERED: LOPE2C PO (15:05)
[2023-01-08] MEDS ORDERED: Ativan1 MG PO (15:06)
[2023-01-08] MEDS ORDERED: DULCOLAX400 MG/5 M PO (15:07)
[2023-01-08] MEDS ORDERED: MORP20L PO (15:08)
[2023-01-08] MEDS ORDERED: ONDA4 PO (15:08)
[2023-01-08] MEDS ORDERED: PHENERGAN25 MG PR (15:09)
[2023-01-08] MEDS ORDERED: MIRALAX17 GM PO (15:09)
[2023-01-08 17:45] VITALS: BP 149/63
== END 2023-01-08 18:08 | disposition home or self-care (01) ==
LOC: ER 14:46
DX: S20.229A Contusion of unspecified back wall of thorax, initial encounter (principal); W18.30XA Fall on same level, unspecified, initial encounter; Z88.2 Allergy status to sulfonamides; Z88.8 Allergy status to other drugs, medicaments and biological substances; Z79.82 Long term (current) use of aspirin; Z79.51 Long term (current) use of inhaled steroids; Z79.899 Other long term (current) drug therapy; I10 Essential (primary) hypertension; E78.5 Hyperlipidemia, unspecified; Z86.73 Personal history of transient ischemic attack (TIA), and cerebral infarction without residual deficits; Z90.710 Acquired absence of both cervix and uterus; Z90.49 Acquired absence of other specified parts of digestive tract; Z87.891 Personal history of nicotine dependence
CPT/HCPCS: 70450; 71045; 72125; 99284-25